=== PATIENT | male | born 1955 | race African-American/Black ===

== ENCOUNTER 2023-08-30 20:24 | Emergency (ER) | payer MEDICARE, OTHER, SELFPAY ==
[2023-08-30] MEDS ORDERED: Boostrix 0.5 ML (Tdap) VIAL (>/=7 yrs of age) ONE (20:37)
== END 2023-08-30 21:35 | disposition home or self-care (01) ==
LOC: NAV ERS 20:24
DX: S61.412A Laceration without foreign body of left hand, initial encounter (principal); F10.129 Alcohol abuse with intoxication, unspecified; F17.210 Nicotine dependence, cigarettes, uncomplicated; W26.8XXA Contact with other sharp object(s), not elsewhere classified, initial encounter; Y93.89 Activity, other specified; Z23 Encounter for immunization
CPT/HCPCS: 12001; 90471; 90715